=== PATIENT | female | born 1990 | race Caucasian/White ===

== ENCOUNTER → 2020-11-01 | Outpatient (CLI) | payer OTHER ==
[~2020-11-01] VITALS: Ht 152.4 cm; Wt 108.9 kg
[~2020-11-01] MED LIST: COLACE 100MG C100 MG PO; DOCUSATE SODIU100 MG PO; FAMOTIDINE20 MG PO; FERROUS SULFAT325 M1 PO; HYDROCODON-ACE1 EAC4 PO; IBUPROFEN600 MG PO; NORCO 10-325 T1 EACH PO; NORCO 5-325 TA1 EACH PO; PRENATABS FA T1 EACH PO
== END ==
LOC: OPSV 12:00
DX: O99.019 Anemia complicating pregnancy, unspecified trimester (principal)
CPT/HCPCS: 96365; J1756

== ENCOUNTER → 2020-11-23 | Outpatient (CLI) | payer OTHER ==
[2020-11-23 14:29] LABS: HEMOGLOBIN 9.9 gm/dl (12.3-15.3); RED BLOOD COUNT 4.29 M/UL (4.00-5.10); WHITE BLOOD COUNT 12.8 K/UL (4.5-11.0)
== END ==
LOC: GENOP 13:08
PROVIDERS: Obstetrics & Gynecology
DX: Z53.8 Procedure and treatment not carried out for other reasons (principal)
CPT/HCPCS: 36415; 81001; 85025

== ENCOUNTER 2020-11-24 07:30 | Inpatient (IN) | payer OTHER ==
[~2020-11-24] VITALS: Ht 165.1 cm; Wt 123.4 kg
[~2020-11-24 07:30] MED LIST changes: -DOCUSATE SODIU100 MG PO; -FAMOTIDINE20 MG PO; -HYDROCODON-ACE1 EAC4 PO; -PRENATABS FA T1 EACH PO
[2020-11-24] MEDS ORDERED: FAMOTIDINE20 MG PO (09:09)
[2020-11-24] MEDS ORDERED: PRENATABS FA T1 EACH PO (09:10)
[2020-11-25 05:01] LABS: HEMOGLOBIN 8.4 gm/dl (12.3-15.3)
[2020-11-25] MEDS ORDERED: HYDROCODON-ACE1 EAC4 PO (11:28)
[2020-11-25] MEDS ORDERED: DOCUSATE SODIU100 MG PO (11:28)
[2020-11-25] MEDS ORDERED: IBUPROFEN600 MG PO (11:28)
== END 2020-11-25 14:40 | disposition home or self-care (01) | DRG 786 ==
LOC: OB 07:51
PROVIDERS: Obstetrics & Gynecology; ADMIT Obstetrics & Gynecology
PROC: 10D00Z1 Extraction of Products of Conception, Low, Open Approach (ICD-10-PCS; principal; 2020-11-24 09:00)
DX: O34.211 Maternal care for low transverse scar from previous cesarean delivery (principal); U07.1 COVID-19; O98.52 Other viral diseases complicating childbirth; Z3A.39 39 weeks gestation of pregnancy; Z37.0 Single live birth; O99.213 Obesity complicating pregnancy, third trimester
CPT/HCPCS: 36415; 81001; 82800; 85014; 85018; 85025; 86850; 86900; 86901; 90471; 90715; C9113; J1170; J1580; J1650; J1885; J2274; J2370; J2405; J2550; J2590; J3010; J7120; U0003